=== PATIENT | female | born 1995 | race Caucasian/White ===

== ENCOUNTER 2018-11-17 11:00 | Inpatient (IN) | payer MEDICAID ==
[~2018-11-17] VITALS: Ht 162.6 cm; Wt 61.2 kg
[2018-11-17] MEDS ORDERED: SODIUM CHLORIDE 0.9% 1,000 ML IV ONE (13:13)
[2018-11-17] MEDS ORDERED: FAMOTIDINE 20MG/2ML VIAL IV STA (13:13)
[2018-11-17] MEDS ORDERED: ONDANSETRON HCL 4MG/2ML INJ IV STA (13:13)
[2018-11-17] MEDS ORDERED: LORAZEPAM 2MG/ML CPJ IV ONE (13:45)
[2018-11-17] MEDS ORDERED: FENTANYL CITRATE/PF 50MCG/ML 2ML VIAL IV ONE ×2 (13:45→17:00)
[2018-11-17 14:20] LABS: CHLORIDE 105 mEq/L (98-107); HEMATOCRIT. 42.3 % (36.0-48.0); HEMOGLOBIN. 14.5 g/dL (12.0-16.0); MEAN CORPUSCULAR HEMOGLOBIN 32.4 pg (28.0-32.0); MEAN CORPUSCULAR VOLUME 94.7 fL (81.0-99.0); MEAN PLATELET VOLUME 9.1 fl (7.4-10.4); PLATELET 373 x1000/uL (130-400); RED BLOOD CELL COUNT 4.46 mill/uL (4.2-5.4); RED CELL DISTRIBUTION WIDTH 13.2 % (11.6-14.6)
[2018-11-17 14:24] LABS: INR 1.1; PARTIAL THROMBOPLASTIN TIME 27.3 sec (23.4-31.0); PROTHROMBIN TIME 11.1 sec (9.1-11.1)
[2018-11-17 14:25] LABS: ETHANOL BLOOD < 10 mg/dL
[2018-11-17 14:32] LABS: CLARITY URINE CLEAR (CLEAR); COLOR URINE YELLOW (YELLOW); KETONES URINE 2+ (NEGATIVE); LEUKOCYTE ESTERASE URINE NEGATIVE (NEGATIVE); NITRITE URINE NEGATIVE (NEGATIVE); OCCULT BLOOD URINE 2+ (NEGATIVE); PH URINE >=9.0 (4.5-8.0); PROTEIN URINE 1+ (NEGATIVE); SPECIFIC GRAVITY URINE 1.023 (1.005-1.030); UROBILINOGEN URINE 0.2 E.U./dL (0.2-1.0)
[2018-11-17 14:53] LABS: *AMPHETAMINES SCREEN URINE NEGATIVE (NEGATIVE); *BARBITURATES SCREEN URINE NEGATIVE (NEGATIVE); *BENZODIAZEPINES SCREEN URINE NEGATIVE (NEGATIVE); *COCAINE SCREEN URINE NEGATIVE (NEGATIVE)
[2018-11-17 14:54] LABS: METHADONE URINE SCREEN NEGATIVE (NEGATIVE); OPIATES URINE SCREEN NEGATIVE (NEGATIVE); PHENCYCLIDINE URINE SCREEN NEGATIVE (NEGATIVE)
[2018-11-17 15:00] LABS: CANNABINOID URINE SCREEN PRESUMTIVE POSITIVE (NEGATIVE)
[2018-11-17 15:59] LABS: PLATELET ESTIMATE NORMAL
[2018-11-17] MEDS ORDERED: CEFTRIAXONE 1 G PREMIX 50 ML IV ONE (16:30)
[2018-11-17] MEDS ORDERED: SODIUM CHLORIDE 0.9% 1000ML BAG (SEPSIS BOLUS) IV ONE (17:00)
[2018-11-17] MEDS ORDERED: KCL 10MEQ/50ML PREMIX 50 ML IV ONE (17:15)
[2018-11-17] MEDS ORDERED: IOHEXOL-300 100 ML BOTTLE ONE (19:04)
[2018-11-17] MEDS ORDERED: ONDANSETRON HCL 4MG/2ML INJ IV PRN (19:45)
[2018-11-17] MEDS ORDERED: LORAZEPAM 2MG/ML CPJ IV PRN (19:45)
[2018-11-17] MEDS ORDERED: ACETAMINOPHEN 325MG TABLET PO PRN (19:45)
[2018-11-17] MEDS ORDERED: MAGNESIUM/ALUMINUM HYDROXIDE/SIMETHICONE 30ML UDC PO PRN (19:45)
[2018-11-17] MEDS ORDERED: DOCUSATE SODIUM 100MG CAPSULE PO PRN (19:45)
[2018-11-17] MEDS ORDERED: IPRATROPIUM/ALBUTEROL 0.5-3(2.5)MG/3ML NEB INH PRN (19:45)
[2018-11-17] MEDS ORDERED: CLONIDINE 0.1MG TABLET PO PRN (19:45)
[2018-11-17] MEDS ORDERED: HYDROCODONE/ACETAMINOPHEN 5/325MG TABLET PO PRN (19:45)
[2018-11-17 20:00] VITALS: BP_SYST 105; BP_SYST 142; BP_DIAS 66; BP_DIAS 70
[2018-11-17] MEDS ORDERED: MVI, ADULT NO.1 10 ML, FOLIC ACID 1 MG, THIAMINE HCL 100 MG in SODIUM CHLORIDE 0.9% 1,0... IV SCH ×4 (22:30)
[2018-11-17 22:35] VITALS: BP 105/66
[2018-11-17] MEDS: PANTOPRAZOLE 40MG DR TABLET PO SCH (23:06)
[2018-11-17] MEDS: CHLORDIAZEPOXIDE 25MG CAPSULE PO SCH (23:06)
[2018-11-17 23:49] LABS: CREATINE KINASE 169 IU/L (26-192)
[2018-11-17 23:50] LABS: CREATINE KINASE MB FRACTION 2.1 ng/mL (0.5-3.6)
[2018-11-18] VITALS: BP 99/56
[2018-11-18] MEDS ORDERED: MAGNESIUM 2 G PREMIX 50 ML IV NR (01:00)
[2018-11-18 04:00] VITALS: BP 95/55
[2018-11-18 06:09] LABS: BASOPHILS % 0.2 % (0.0-2.0); HEMATOCRIT. 35.1 % (36.0-48.0); HEMOGLOBIN. 12.1 g/dL (12.0-16.0); LYMPHOCYTES % 17.5 % (20.0-50.0); MEAN CORPUSCULAR HEMOGLOBIN 32.8 pg (28.0-32.0); MEAN PLATELET VOLUME 9.1 fl (7.4-10.4); MONOCYTES % 9.4 % (2.0-8.0); NEUTROPHILS % 72.9 % (40.0-76.0); PLATELET 286 x1000/uL (130-400); RED BLOOD CELL COUNT 3.69 mill/uL (4.2-5.4); RED CELL DISTRIBUTION WIDTH 13.2 % (11.6-14.6)
[2018-11-18] MEDS: PANTOPRAZOLE 40MG DR TABLET PO SCH (06:38)
[2018-11-18] MEDS: CHLORDIAZEPOXIDE 25MG CAPSULE PO SCH ×2 (06:38→14:50)
[2018-11-18 06:47] LABS: CHLORIDE 110 mEq/L (98-107)
[2018-11-18 06:58] LABS: LDL CHOLESTEROL 51 mg/dL (5-100)
[2018-11-18 06:59] LABS: CREATINE KINASE 144 IU/L (26-192)
[2018-11-18 07:00] LABS: HDL CHOLESTEROL 68 mg/dL (40-59)
[2018-11-18 07:03] LABS: CREATINE KINASE MB FRACTION 2.4 ng/mL (0.5-3.6)
[2018-11-18] MEDS ORDERED: SODIUM CHLORIDE 0.9% 1,000 ML IV SCH (07:30)
[2018-11-18 08:00] VITALS: BP 106/47
[2018-11-18] MEDS ORDERED: POTASSIUM CHLORIDE 20MEQ TABLET SR PO SCH (08:00)
[2018-11-18 08:42] LABS: T4 FREE 0.98 ng/dL (0.76-1.46)
[2018-11-18] MEDS ORDERED: FOLIC ACID 1MG TABLET PO SCH (09:00)
[2018-11-18] MEDS ORDERED: THIAMINE HCL 100MG TABLET PO SCH (09:00)
[2018-11-18] MEDS ORDERED: ENOXAPARIN 40MG/0.4ML SYR SUBCUT SCH (09:00)
[2018-11-18] MEDS ORDERED: MULTIVITAMINS,THER W-MINERALS TABLET PO SCH (09:00)
[2018-11-18 12:00] VITALS: BP 104/55
[2018-11-18 15:14] VITALS: BP 101/58
[2018-11-18] MEDS ORDERED: CEFTRIAXONE 1 G PREMIX 50 ML IV SCH ×2 (16:00→18:00)
[2018-11-18] MEDS ORDERED: FAMOTIDINE 20MG TABLET PO SCH (21:00)
== END 2018-11-18 15:45 | disposition home or self-care (01) | DRG 241 ==
LOC: ER 13:19 → 6EST 16:57 → EDBEDREQ 17:01 → EDBEDREQTM 17:01 → ENRESERV 19:43
PROVIDERS: ADMIT Internal Medicine; ATTEND Internal Medicine
DX: K29.20 Alcoholic gastritis without bleeding (principal); E83.42 Hypomagnesemia; D72.829 Elevated white blood cell count, unspecified; F12.90 Cannabis use, unspecified, uncomplicated; E87.6 Hypokalemia; N39.0 Urinary tract infection, site not specified
CPT/HCPCS: 36415; 74022; 74177; 76705; 80061; 80305; 82550; 82553; 83605; 83735; 84439; 84443; 84481; 84484; 93005; 93970; 96361; 96365; 96366; 96375; 99291; G0482; J0696; J1650; J2060; J2405; J3010; J3411; J3475; J3480; J3490; J7030; Q9967